=== PATIENT | female | born 1975 | race Hispanic/Latino ===

== ENCOUNTER 2016-12-04 20:09 | Emergency (ER) | payer MEDICARE ==
[2016-12-04 22:50] VITALS: BP 150/85
[2016-12-04 23:19] LABS: Basophils % (Auto) 0.6 % (0.0-1.8); Eosinophils % (Auto) 2.2 % (0.0-4.3); Hematocrit 43.2 % (30.3-42.9); Hemoglobin 14.3 gm/dl (10.1-14.3); Mean Corpuscular HGB Conc 33 % (30-34); Mean Corpuscular Hemoglobin 33 pg (28-32); Mean Corpuscular Volume 100 fl (79-97); Platelet Count 205 K/mm3 (140-440); Red Blood Count 4.33 M/mm3 (3.65-5.03); Red Cell Distribution Width 13.5 % (13.2-15.2); White Blood Count 8.8 K/mm3 (4.5-11.0)
[2016-12-04 23:53] LABS: Albumin 5.2 g/dL (3.9-5); Albumin/Globulin Ratio 1.7 %; Bilirubin,Total 0.5 mg/dL (0.1-1.2); Calcium 10.4 mg/dL (8.4-10.2); Chloride 103.6 mmol/L (98-107); Potassium 4.1 mmol/L (3.6-5.0); Total Protein 8.3 g/dL (6.3-8.2)
[2016-12-05 02:03] LABS: Urine Drugs of Abuse Note Disclamer
[2016-12-05 02:33] LABS: Bilirubin,Urine NEG (Negative); Blood,Urine NEG (Negative); Ketones,Urine 20 mg/dL (Negative); Leukocyte Esterase,Urine NEG (Negative); Mucus,Urine 3+ /HPF; Nitrite,Urine NEG (Negative)
--- NOTE | 2016-12-06 19:28 | ED Elopement Review ---
ED Pt Elopement review - Results review Lab results: Laboratory Tests 12/04/16 12/04/16 12/04/16 23:09 23:09 23:09 WBC 8.8 RBC 4.33 Hgb 14.3 Hct 43.2 H MCV 100 H MCH 33 H MCHC 33 RDW 13.5 Plt Count 205 Lymph % (Auto) 34.9 [place] % (Auto) 5.5 Eos % (Auto) 2.2 Baso % (Auto) 0.6 Lymph # 3.1 [place] # 0.5 Eos # 0.2 Baso # 0.1 Seg Neutrophils % 56.8 Seg Neutrophils # 5.0 Sodium 144 Potassium 4.1 Chloride 103.6 Carbon Dioxide 23 Anion Gap 22 BUN 22 H Creatinine 1.1 Estimated GFR 54 BUN/Creatinine Ratio 20.00 Glucose 107 H Calcium 10.4 H Total Bilirubin 0.5 AST 17 ALT 14 Alkaline Phosphatase 64 Total Protein 8.3 H Albumin 5.2 H Albumin/Globulin Ratio 1.7 Lipase 69 H HCG, Qual Negative Urine Color Urine Turbidity Urine pH Ur Specific [place] Urine Protein Urine Glucose (UA) Urine Ketones Urine Blood Urine Nitrite Urine Bilirubin Urine Urobilinogen Ur Leukocyte Esterase Urine WBC (Auto) Urine RBC (Auto) U Epithel Cells (Auto) Calcium Oxalate Crystal Amorphous Crystals Urine Mucus Urine Opiates Screen Urine Methadone Screen Ur Barbiturates Screen Ur Phencyclidine Scrn Ur Amphetamines Screen U Benzodiazepines Scrn Urine Cocaine Screen U Marijuana (THC) Screen Drugs of Abuse Note Plasma/Serum Alcohol 12/04/16 12/05/16 12/05/16 23:09 Unknown Unknown WBC RBC Hgb Hct MCV MCH MCHC RDW Plt Count Lymph % (Auto) [place] % (Auto) Eos % (Auto) Baso % (Auto) Lymph # [place] # Eos # Baso # Seg Neutrophils % Seg Neutrophils # Sodium Potassium Chloride Carbon Dioxide Anion Gap BUN Creatinine Estimated GFR BUN/Creatinine Ratio Glucose Calcium Total Bilirubin AST ALT Alkaline Phosphatase Total Protein Albumin Albumin/Globulin Ratio Lipase HCG, Qual Urine Color [place] Urine Turbidity Cloudy Urine pH 8.0 H Ur Specific [place] 1.023 Urine Protein 30 mg/dl Urine Glucose (UA) Neg Urine Ketones 20 Urine Blood Neg Urine Nitrite Neg Urine Bilirubin Neg Urine Urobilinogen 2.0 Ur Leukocyte Esterase Neg Urine WBC (Auto) 0.0 Urine RBC (Auto) 8.0 U Epithel Cells (Auto) 5.0 Calcium Oxalate Crystal 1+ Amorphous Crystals 1+ Urine Mucus 3+ Urine Opiates Screen Presumptive negative Urine Methadone Screen Presumptive negative Ur Barbiturates Screen Presumptive negative Ur Phencyclidine Scrn Presumptive positive Ur Amphetamines Screen Presumptive negative U Benzodiazepines Scrn Presumptive negative Urine Cocaine Screen Presumptive positive U Marijuana (THC) Screen Presumptive positive Drugs of Abuse Note Disclamer Plasma/Serum Alcohol < 0.01 - Call Back decision Pt Call Back Decision: No action required
== END 2016-12-05 01:15 | disposition left against medical advice (07) ==
LOC: ED 20:09
DX: R11.2 Nausea with vomiting, unspecified (principal); Z53.21 Procedure and treatment not carried out due to patient leaving prior to being seen by health care provider
CPT/HCPCS: 36415; 80053; 80307; 81001; 83690; 84703; 85025; G0480; 80320

== ENCOUNTER 2016-12-19 11:01 | Outpatient (CLI) | payer MEDICARE ==
--- NOTE | 2016-12-19 14:27 | Ultrasound Report ---
Pelvic ultrasound: Ovarian cyst. Endovaginal and transabdominal imaging demonstrates an anteverted uterus measuring 3.1 a 4.2 x 7.2 cm. 2 hypoechoic myometrial masses are present. There is a 1 cm mass which is in the submucous location posteriorly. A second mass is in the fundus measuring 14 mm. The endometrial thickness is 4.1 mm and unremarkable. The left ovary measures 4.1 cm. It contains 2 cysts measuring 17 and 18 mm respectively. The right ovary measures 2.7 cm with an eccentric 9 mm cyst. No free fluid. Impression: 1. Fibroids, one of which appears submucous in position. 2. Bilateral ovarian cysts.
== END 2016-12-19 11:02 | disposition home or self-care (01) ==
LOC: MRI 11:01
PROVIDERS: ATTEND Internal Medicine Hematology & Oncology
DX: D25.0 Submucous leiomyoma of uterus (principal); N83.202 Unspecified ovarian cyst, left side; N83.201 Unspecified ovarian cyst, right side; N85.8 Other specified noninflammatory disorders of uterus
CPT/HCPCS: 76830; 76856

== ENCOUNTER 2019-02-19 14:11 | Emergency (ER) | payer MEDICARE ==
--- NOTE | 2019-02-19 14:34 | Emergency Department Report ---
ED General Adult HPI - General Chief complaint: Psych Stated complaint: PSYCH/NEED HELP Time Seen by Provider: 02/19/19 14:23 Source: patient, EMS (ems notes not available at time of chart dictation), RN notes reviewed, old records reviewed Mode of arrival: Ambulatory Limitations: No Limitations - History of Present Illness Initial comments: This is a 44-year-old female. The patient reportedly has a history of seizures, malnutrition, eating disorder, alcohol and drug abuse. The patient presents to the emergency room for a request for general medical evaluation. She reports that a local neighbor contacted 911. She is not currently suicidal. She is not currently homicidal. She reports intermittent suicidality. She makes no complaint of hallucinations. She denies headache and neck pain. She denies chest pain. She has abdominal cramping. She denies urinary symptoms. She would like to drink. She denies focal extremity weakness or numbness. Her symptoms have been going on for a while. The patient is not able to describe exacerbating or relieving factors. She might be interested in pursuing voluntary placement. She is not sure. -: Gradual Consistency: constant Improves with: none Worsens with: none - Related Data Previous Rx's Medication Instructions Recorded Last Taken Type levETIRAcetam [Keppra TAB] 500 mg PO BID #90 tablet 03/10/16 Unknown Rx HYDROcodone/APAP 5-325 [[place] 1 each PO Q6HR PRN #20 tablet 05/21/16 Unknown Rx 5/325] Ibuprofen [Motrin] 400 mg PO Q8H PRN #30 tablet 05/21/16 Unknown Rx Clindamycin [Clindamycin CAP] 300 mg PO Q8H 7 Days cap 07/01/18 Unknown Rx Ibuprofen [Motrin] 600 mg PO Q8H PRN #20 tablet 07/01/18 Unknown Rx Allergies Allergy/AdvReac Type Severity Reaction Status Date / Time levetiracetam [From Keppra] Allergy Swelling Verified 02/19/19 14:14 phenytoin sodium AdvReac Unknown Verified 02/19/19 14:14 [From Dilantin] phenytoin sodium extended AdvReac Unknown Verified 02/19/19 14:14 [From Dilantin] ED Review of Systems ROS: Stated complaint: PSYCH/NEED HELP Other details as noted in HPI Constitutional: malaise Eyes: denies: eye discharge ENT: denies: epistaxis Respiratory: denies: cough Cardiovascular: denies: chest pain Gastrointestinal: denies: vomiting Genitourinary: denies: dysuria Musculoskeletal: arthralgia, myalgia Skin: denies: lesions Neurological: weakness Psychiatric: anxiety, depression ED Past Medical Hx - Past Medical History Hx Seizures: Yes Additional medical history: ETOH/drug abuse, "eating disorder", - Surgical History Additional Surgical History: Implanted antiseizure device - Social History Smoking Status: Never Smoker Substance Use Type: None - Medications Home Medications: Home Medications Medication Instructions Recorded Confirmed Last Taken Type levETIRAcetam [Keppra TAB] 500 mg PO BID #90 tablet 03/10/16 Unknown Rx HYDROcodone/APAP 5-325 [[place] 1 each PO Q6HR PRN #20 tablet 05/21/16 Unknown Rx 5/325] Ibuprofen [Motrin] 400 mg PO Q8H PRN #30 tablet 05/21/16 Unknown Rx Clindamycin [Clindamycin CAP] 300 mg PO Q8H 7 Days cap 07/01/18 Unknown Rx Ibuprofen [Motrin] 600 mg PO Q8H PRN #20 tablet 07/01/18 Unknown Rx ED Physical Exam - General Limitations: No Limitations General appearance: alert, anxious, cachectic - Head Head exam: Present: atraumatic, normocephalic - Eye Eye exam: Present: normal appearance, EOMI - ENT ENT exam: Present: normal orophraynx, mucous membranes moist, normal external ear exam - Neck Neck exam: Present: normal inspection, full ROM. Absent: tenderness, menin gismus - Respiratory Respiratory exam: Present: normal lung sounds bilaterally. Absent: respiratory distress - Cardiovascular Cardiovascular Exam: Present: regular rate, normal rhythm, normal heart sounds. Absent: bradycardia, tachycardia, irregular rhythm, systolic murmur, diastolic murmur, rubs, gallop - GI/Abdominal GI/Abdominal exam: Present: soft. Absent: distended, tenderness, guarding, rebound, rigid, pulsatile mass - Extremities Exam Extremities exam: Present: normal inspection, full ROM, other (2+ pulses noted in the bilateral upper extremities. Walking with a cane. No long bony tenderness. Muscular compartment soft.). Absent: calf tenderness - Back Exam Back exam: Present: normal inspection, full ROM. Absent: tenderness, CVA tenderness (R), paraspinal tenderness - Neurological Exam Neurological exam: Present: alert, oriented X3, normal gait, other (Extraocular movements intact. Tongue midline. No facial droop. Facial sensation intact to light touch in the V1, V2, V3 distribution bilaterally. 5 and 5 strength in 4 extremities.. Sensation is intact to light touch in 4 extremities.). Absent: motor sensory deficit - Psychiatric Psychiatric exam: Present: anxious - Skin Skin exam: Present: warm, dry, intact, normal color. Absent: rash ED Course Vital Signs 02/19/19 16:15 Temperature 98 F Pulse Rate 86 Respiratory 16 Rate Blood Pressure 102/59 [Left] O2 Sat by Pulse 96 Oximetry - Reevaluation(s) Reevaluation #1: 02/19/19 16:10 Differential diagnosis, including but not limited to: Mood disorder, malnutrition, general medical evaluation Assessment and plan: 44-year-old female, with a number of nonspecific complaints. The patient has an unremarkable physical examination. She is not currently homicidal or suicidal. She is somewhat anxious, and somewhat disorganized, but in my opinion, does not seem like she would benefit from an involuntary psychiatric hospitalization. Screening laboratory studies so far unremarkable. A psychiatric consultation has been requested. Anticipate the patient will be able to be safely discharged with outpatient follow-up. Triage nursing documentation is reviewed and appreciated, patient endorses prior thoughts of suicidality, but reports, currently, is not suicidal. Reevaluation #2: 02/19/19 18:33 Patient resting comfortably, and stretcher, and is sleeping. No acute distress. Does not appear to have an emergent medical condition at this time. Clinically do not suspect intoxication. 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 The patient does not meet criteria for inpatient hold or psychiatric hospitalization. She does not have evidence of an emergent medical condition at this time. A case management consult has been ordered to assist patient with home issues, but we will discharge the patient at this time. ED Medical Decision Making - Lab Data Result diagrams: 02/19/19 14:48 02/19/19 14:48 Lab Results 02/19/19 02/19/19 02/19/19 Range/Units 14:48 14:48 14:48 WBC 9.1 (4.5-11.0) K/mm3 RBC 3.85 (3.65-5.03) M/mm3 Hgb 12.1 (10.1-14.3) gm/dl Hct 36.0 (30.3-42.9) % MCV 94 (79-97) fl MCH 31 (28-32) pg MCHC 34 (30-34) % RDW 17.7 H (13.2-15.2) % Plt Count 217 (140-440) K/mm3 Sodium 139 (137-145) mmol/L Potassium 4.1 (3.6-5.0) mmol/L Chloride 101.6 (98-107) mmol/L Carbon Dioxide 24 (22-30) mmol/L Anion Gap 18 mmol/L BUN 13 (7-17) mg/dL Creatinine 0.7 (0.7-1.2) mg/dL Estimated GFR > 60 ml/min BUN/Creatinine Ratio 19 % Glucose 103 H (65-100) mg/dL Calcium 9.6 (8.4-10.2) mg/dL Magnesium 2.00 (1.7-2.3) mg/dL Total Bilirubin 0.70 (0.1-1.2) mg/dL AST 23 (5-40) units/L ALT 15 (7-56) units/L Alkaline Phosphatase 69 (35-129) units/L Total Creatine Kinase 226 H (30-135) units/L Total Protein 7.2 (6.3-8.2) g/dL Albumin 4.5 (3.9-5) g/dL Albumin/Globulin Ratio 1.7 % Lipase 29 (13-60) units/L Salicylates < 0.3 L (2.8-20.0) mg/dL Acetaminophen (10.0-30.0) ug/mL Plasma/Serum Alcohol (0-0.07) % 02/19/19 02/19/19 Range/Units 14:48 14:48 WBC (4.5-11.0) K/mm3 RBC (3.65-5.03) M/mm3 Hgb (10.1-14.3) gm/dl Hct (30.3-42.9) % MCV (79-97) fl MCH (28-32) pg MCHC (30-34) % RDW (13.2-15.2) % Plt Count (140-440) K/mm3 Sodium (137-145) mmol/L Potassium (3.6-5.0) mmol/L Chloride (98-107) mmol/L Carbon Dioxide (22-30) mmol/L Anion Gap mmol/L BUN (7-17) mg/dL Creatinine (0.7-1.2) mg/dL Estimated GFR ml/min BUN/Creatinine Ratio % Glucose (65-100) mg/dL Calcium (8.4-10.2) mg/dL Magnesium (1.7-2.3) mg/dL Total Bilirubin (0.1-1.2) mg/dL AST (5-40) units/L ALT (7-56) units/L Alkaline Phosphatase (35-129) units/L Total Creatine Kinase (30-135) units/L Total Protein (6.3-8.2) g/dL Albumin (3.9-5) g/dL Albumin/Globulin Ratio % Lipase (13-60) units/L Salicylates (2.8-20.0) mg/dL Acetaminophen < 5.0 L (10.0-30.0) ug/mL Plasma/Serum Alcohol < 0.01 (0-0.07) % Vital Signs 02/19/19 16:15 Temperature 98 F Pulse Rate 86 Respiratory 16 Rate Blood Pressure 102/59 [Left] O2 Sat by Pulse 96 Oximetry Critical care attestation.: If time is entered above; I have spent that time in minutes in the direct care of this critically ill patient, excluding procedure time. ED Disposition Clinical Impression: General medical examination Disposition: DC-01 TO HOME OR SELFCARE Is pt being admited?: No Does the pt Need Aspirin: No Condition: Stable Additional Instructions: Continue current outpatient medications. Follow up with her primary care doctor within the next 2 weeks. Return to the emergency room right away with new, worsening or different symptoms, or symptoms not present on the initial emergen cy room evaluation. Referrals: MABEL JIM MD [Referring] - 3-5 Days
[2019-02-19 14:57] LABS: Hemoglobin 12.1 gm/dl (10.1-14.3); Mean Corpuscular HGB Conc 34 % (30-34); Mean Corpuscular Volume 94 fl (79-97); Platelet Count 217 K/mm3 (140-440); Red Blood Count 3.85 M/mm3 (3.65-5.03); Red Cell Distribution Width 17.7 % (13.2-15.2)
[2019-02-19 15:15] LABS: Alanine Aminotransferase 15 units/L (7-56); Albumin 4.5 g/dL (3.9-5); BUN/Creatinine Ratio 19; Blood Urea Nitrogen 13 mg/dL (7-17); Calcium 9.6 mg/dL (8.4-10.2); Hemolysis Index 9
[2019-02-19 16:20] VITALS: BP 102/59
== END 2019-02-19 19:31 | disposition home or self-care (01) ==
LOC: ED 14:11
DX: R10.9 Unspecified abdominal pain (principal); R45.851 Suicidal ideations
CPT/HCPCS: 36415; 80053; 82550; 83690; 83735; 85027; 99283; G0480; 80320

== ENCOUNTER 2022-02-02 05:24 | Emergency (ER) | payer MEDICARE ==
[2022-02-02] MEDS ORDERED: VALPROATE SODIUM 500 MG in SODIUM CHLORIDE 0.9% 100 ML IV ONE (06:18)
--- NOTE | 2022-02-02 06:22 | Emergency Department Report ---
ED Seizure HPI - General Chief Complaint: Seizure Stated Complaint: SEIZURE Time Seen by Provider: 02/02/22 06:10 Source: patient, EMS Mode of arrival: Stretcher Limitations: Other - History of Present Illness Initial Comments: Patient is 47 years old female with history of seizure. Patient brought to the emergency room via EMS from home for evaluation of 1 episode of seizure. Patient stated that seizure was not witnessed. Patient does not know what medication she is taking for seizure. She stated that she hit her head and she is having some abrasion to the forehead. She is complaining of mild headache. She denies any neck pain, chest pain, shortness of breath, abdominal pain, nausea or vomiting. She also denied any fever or chills. MD Complaint: seizure -: This morning Description of Episode: loss of consciousness, post-event confusion Witnessed:: No Trauma: Yes (head injury) Seizure History: known seizure disorder Place: home Associated Symptoms: denies other symptoms Treatments Prior to Arrival: none - Related Data Previous Rx's Medication Instructions Recorded Last Taken Type levETIRAcetam [Keppra TAB] 500 mg PO BID #90 tablet 03/10/16 Unknown Rx HYDROcodone/APAP 5-325 [[place] 1 each PO Q6HR PRN #20 tablet 05/21/16 Unknown Rx 5/325] Ibuprofen [Motrin] 400 mg PO Q8H PRN #30 tablet 05/21/16 Unknown Rx Clindamycin [Clindamycin CAP] 300 mg PO Q8H 7 Days cap 07/01/18 Unknown Rx Ibuprofen [Motrin] 600 mg PO Q8H PRN #20 tablet 07/01/18 Unknown Rx Allergies Allergy/AdvReac Type Severity Reaction Status Date / Time levetiracetam [From Keppra] Allergy Swelling Verified 02/02/22 06:39 phenytoin [From Dilantin] Allergy Unknown Verified 02/02/22 06:39 phenytoin sodium AdvReac Unknown Verified 02/02/22 06:39 [From Dilantin] phenytoin sodium extended AdvReac Unknown Verified 02/02/22 06:39 [From Dilantin] ED Review of Systems ROS: Stated complaint: SEIZURE Other details as noted in HPI Comment: All other systems reviewed and negative Constitutional: denies: chills, fever Respiratory: denies: cough, orthopnea, shortness of breath, SOB with exertion, SOB at rest, wheezing Cardiovascular: denies: chest pain, palpitations, dyspnea on exertion Gastrointestinal: denies: abdominal pain, nausea, vomiting, diarrhea Musculoskeletal: denies: back pain Neurological: headache. denies: weakness, numbness, paresthesias, confusion ED Past Medical Hx - Past Medical History Previous Medical History?: Yes Hx Seizures: Yes Additional medical history: ETOH/drug abuse, "eating disorder", - Surgical History Past Surgical History?: No Additional Surgical History: poor historian - Social History Smoking Status: Current Every Day Smoker Substance Use Type: None - Medications Home Medications: Home Medications Medication Instructions Recorded Confirmed Last Taken Type levETIRAcetam [Keppra TAB] 500 mg PO BID #90 tablet 03/10/16 Unknown Rx HYDROcodone/APAP 5-325 [[place] 1 each PO Q6HR PRN #20 tablet 05/21/16 Unknown Rx 5/325] Ibuprofen [Motrin] 400 mg PO Q8H PRN #30 tablet 05/21/16 Unknown Rx Clindamycin [Clindamycin CAP] 300 mg PO Q8H 7 Days cap 07/01/18 Unknown Rx Ibuprofen [Motrin] 600 mg PO Q8H PRN #20 tablet 07/01/18 Unknown Rx ED Physical Exam - General Limitations: Other General appearance: alert, in no apparent distress - Head Head exam: Present: other (Bruises to the forehead.) - Eye Eye exam: Present: normal appearance - ENT ENT exam: Present: normal exam, normal orophraynx, mucous membranes moist - Neck Neck exam: Present: normal inspection, full ROM. Absent: tenderness, meningismus, lymphadenopathy, thyromegaly - Respiratory Respiratory exam: Present: normal lung sounds bilaterally - Cardiovascular Cardiovascular Exam: Present: regular rate, normal rhythm, normal heart sounds - GI/Abdominal GI/Abdominal exam: Present: soft, normal bowel sounds. Absent: distended, tenderness, guarding, rebound, rigid, organomegaly, mass, bruit, pulsatile mass, hernia - Extremities Exam Extremities exam: Present: normal inspection, full ROM, normal capillary refill. Absent: pedal edema, calf tenderness - Back Exam Back exam: Present: normal inspection, full ROM. Absent: CVA tenderness (R), CVA tenderness (L) - Neurological Exam Neurological exam: Present: alert, oriented X3, CN II-XII intact, normal gait, reflexes normal - Psychiatric Psychiatric exam: Present: normal mood - Skin Skin exam: Present: warm, intact, abrasion ED Course Vital Signs 02/02/22 02/02/22 02/02/22 05:54 06:00 10:22 Temperature 98 F 98.7 F Pulse Rate 76 79 87 Respiratory 18 20 16 Rate Blood Pressure 107/78 Blood Pressure 107/68 122/72 [Right] O2 Sat by Pulse 99 98 100 Oximetry 02/02/22 02/02/22 02/02/22 11:55 11:56 11:58 Temperature Pulse Rate 78 75 81 Respiratory 19 22 20 Rate Blood Pressure Blood Pressure [Right] O2 Sat by Pulse 99 99 100 Oximetry 02/02/22 02/02/22 02/02/22 12:00 12:02 12:04 Temperature Pulse Rate 78 78 82 Respiratory 27 H 19 16 Rate Blood Pressure Blood Pressure [Right] O2 Sat by Pulse 100 99 100 Oximetry 02/02/22 02/02/22 02/02/22 12:06 12:08 12:10 Temperature Pulse Rate 82 82 72 Respiratory 18 13 21 Rate Blood Pressure Blood Pressure [Right] O2 Sat by Pulse 100 100 99 Oximetry 02/02/22 02/02/22 02/02/22 12:12 12:14 12:16 Temperature Pulse Rate 76 79 84 Respiratory 16 16 20 Rate Blood Pressure Blood Pressure [Right] O2 Sat by Pulse 99 100 97 Oximetry 02/02/22 02/02/22 02/02/22 12:18 12:20 12:22 Temperature Pulse Rate 81 74 81 Respiratory 24 21 15 Rate Blood Pressure 112/67 112/67 Blood Pressure [Right] O2 Sat by Pulse 99 99 99 Oximetry 02/02/22 02/02/22 02/02/22 12:24 12:25 12:26 Temperature Pulse Rate 72 77 80 Respiratory 24 20 21 Rate Blood Pressure 112/67 112/67 Blood Pressure 115/70 [Right] O2 Sat by Pulse 99 99 98 Oximetry 02/02/22 02/02/22 02/02/22 12:28 12:30 12:32 Temperature Pulse Rate 79 83 78 Respiratory 19 18 24 Rate Blood Pressure 112/67 112/67 112/67 Blood Pressure [Right] O2 Sat by Pulse 100 99 100 Oximetry 02/02/22 02/02/22 02/02/22 12:34 12:36 12:38 Temperature Pulse Rate 76 79 73 Respiratory 15 19 26 H Rate Blood Pressure 112/67 112/67 112/67 Blood Pressure [Right] O2 Sat by Pulse 100 100 99 Oximetry 02/02/22 02/02/22 02/02/22 12:40 12:42 12:44 Temperature Pulse Rate 78 79 77 Respiratory 20 21 15 Rate Blood Pressure 112/67 112/67 112/67 Blood Pressure [Right] O2 Sat by Pulse 99 100 99 Oximetry 02/02/22 02/02/22 02/02/22 12:46 12:48 12:50 Temperature Pulse Rate 77 78 77 Respiratory 20 17 14 Rate Blood Pressure 112/67 112/67 114/72 Blood Pressure [Right] O2 Sat by Pulse 100 99 Oximetry 02/02/22 02/02/22 02/02/22 12:52 12:54 12:56 Temperature Pulse Rate 72 80 86 Respiratory 19 26 H 23 Rate Blood Pressure 114/72 114/72 114/72 Blood Pressure [Right] O2 Sat by Pulse 98 99 100 Oximetry 02/02/22 02/02/22 02/02/22 12:58 13:00 13:02 Temperature Pulse Rate 78 86 78 Respiratory 28 H 16 13 Rate Blood Pressure 114/72 114/72 114/72 Blood Pressure [Right] O2 Sat by Pulse 99 99 97 Oximetry 02/02/22 02/02/22 02/02/22 13:04 13:06 13:08 Temperature Pulse Rate 81 74 81 Respiratory 23 18 13 Rate Blood Pressure 114/72 114/72 114/72 Blood Pressure [Right] O2 Sat by Pulse 98 99 98 Oximetry 02/02/22 02/02/22 02/02/22 13:10 13:12 13:14 Temperature Pulse Rate 80 82 82 Respiratory 21 11 L 20 Rate Blood Pressure 114/72 114/72 114/72 Blood Pressure [Right] O2 Sat by Pulse 99 98 99 Oximetry 02/02/22 02/02/22 13:16 13:18 Temperature Pulse Rate 85 77 Respiratory 21 18 Rate Blood Pressure 114/72 114/72 Blood Pressure [Right] O2 Sat by Pulse 98 98 Oximetry ED Medical Decision Making - Lab Data Result diagrams: 02/02/22 06:29 02/02/22 06:29 - Radiology Data Radiology results: report reviewed - Medical Decision Making Patient is 47 years old female with history of seizure. Patient brought to the emergency room via EMS from home for evaluation of 1 episode of seizure. Patient stated that seizure was not witnessed. Patient does not know what medication she is taking for seizure. She stated that she hit her head and she is having some abrasion to the forehead. She is complaining of mild headache. She denies any neck pain, chest pain, shortness of breath, abdominal pain, nausea or vomiting. She also denied any fever or chills. Labs reviewed and is unremarkable. Patient received 500 mg of IV valproic acid.. CT brain is negative for acute finding. Patient remained seizure-free in the ER. Patient advised to follow-up with her primary doctor in the next 2 to 3 days and to return to the ER if she develop any new symptoms. Critical care attestation.: If time is entered above; I have spent that time in minutes in the direct care of this critically ill patient, excluding procedure time. ED Disposition Clinical Impression: Seizure Disposition: 01 HOME / SELF CARE / HOMELESS Is pt being admited?: No Condition: Stable Instructions: Seizure, Adult Referrals: PRIMARY CARE, [Primary Care Provider] - 3-5 Days
[2022-02-02] MEDS ORDERED: ONDANSETRON 4 MG/2 ML INJ IV ONE (06:31)
[2022-02-02 06:46] LABS: Basophils % (Auto) 0.3 % (0.0-1.8); Eosinophils % (Auto) 0.2 % (0.0-4.3); Hematocrit 43.2 % (30.3-42.9); Lymphocytes # (Auto) 1.1 K/mm3 (1.2-5.4); Lymphocytes % (Auto) 11.4 % (13.4-35.0); Mean Corpuscular HGB Conc 32 % (30-34); Mean Corpuscular Volume 101 fl (79-97); Monocytes # (Auto) 0.4 K/mm3 (0.0-0.8); Platelet Count 182 K/mm3 (140-440); Red Blood Count 4.29 M/mm3 (3.65-5.03); Red Cell Distribution Width 13.2 % (13.2-15.2)
[2022-02-02 07:05] LABS: BUN/Creatinine Ratio 16; Blood Urea Nitrogen 14 mg/dL (7-17); Calcium 9.8 mg/dL (8.4-10.2); Hemolysis Index 9
[2022-02-02] MEDS ORDERED: LORazepam 2 MG/ML VIAL IV ONE (07:15)
--- NOTE | 2022-02-02 08:36 | Cat Scan Report ---
. CT HEAD WITHOUT CONTRAST INDICATION / CLINICAL INFORMATION: head injury. Headache TECHNIQUE: All CT scans at this location are performed using CT dose reduction for ALARA by means of automated e xposure control. COMPARISON: None available. FINDINGS: HEMORRHAGE: None. EXTRA-AXIAL SPACES: Normal in size and morphology for the patient's age. VENTRICULAR SYSTEM: Normal in size and morphology for the patient's age. CEREBRAL PARENCHYMA: No significant abnormality. No acute territorial infarct. MIDLINE SHIFT OR HERNIATION: None. CEREBELLUM / BRAINSTEM: No significant abnormality. ORBITS: Normal as visualized. SOFT TISSUES of HEAD: No significant abnormality. CALVARIUM: No significant abnormality. PARANASAL SINUSES / MASTOID AIR CELLS: Normal as visualized. ADDITIONAL FINDINGS: None. IMPRESSION: 1. No acute intracranial abnormality. Signer Name: Edison Casas MD Signed: 02/02/2022 8:31 AM Workstation Name: [id number]
[2022-02-02] MEDS ORDERED: KETOROLAC 30 MG/1 ML INJ IV ONE (09:31)
[2022-02-02 12:44] LABS: Amphetamine Screen,Urine Negative; Benzodiazepines Screen,Urine Negative; Cannabinoid Screen,Urine Negative; Cocaine Screen,Urine Negative; Methadone Screen,Urine Negative; Opiate Screen,Urine Negative
[2022-02-02 12:55] LABS: Bilirubin,Urine NEG (Negative); Blood,Urine NEG (Negative); Color,Urine Yellow (Yellow); Mucus,Urine FEW /HPF; Urobilinogen,Urine < 2.0 mg/dL (<2.0)
[2022-02-02] MEDS ORDERED: SODIUM CHLORIDE 0.9% 1000 ML 1,000 ML IV ONE (13:21)
[2022-02-02 18:02] VITALS: BP 108/73
== END 2022-02-02 18:36 | disposition home or self-care (01) ==
LOC: ED 05:24
DX: G43.909 Migraine, unspecified, not intractable, without status migrainosus (principal); F10.10 Alcohol abuse, uncomplicated; F17.290 Nicotine dependence, other tobacco product, uncomplicated; Z88.8 Allergy status to other drugs, medicaments and biological substances
CPT/HCPCS: 36415; 70450; 80048; 80307; 81001; 85025; 96361; 96365; 96375; 99284; J1885; J2060; J2405; J7030